=== PATIENT | male | born 1945 | race Caucasian/White ===

== ENCOUNTER 2019-10-12 16:34 | Emergency (ER) | payer OTHER, MEDICARE ==
--- NOTE | 2019-10-12 17:12 | EDM.PDOC ---
<Isidro Pardo M - Last Filed: 10/12/19 17:06> ED HPI GENERAL MEDICAL PROBLEM - General Stated Complaint: PNEUMONIA, SHORTNESS OF BREATH, COUGH Time Seen by Provider: 10/12/19 17:00 Source of Information: Reports: Patient History Limitations: Reports: No Limitations - History of Present Illness INITIAL COMMENTS - FREE TEXT/NARRATIVE: This 74 yo male patient reports to the ED with increased shortness of breath. The patient reports his shortness of breath started about 1 1/2 to 2 weeks ago, but has been getting worse. The patient reports increased shortness of breath with exertion. The [facility] but [facility] not been seen for the past couple of months. The patient reports his shortness of breath has been getting worse over the past several days. The patient reports he does have a C-Pap, but does not use it. The patient has a past medical history of myloma, diabetes, COPD, MONICA and GERD. The patient reports he has not been traveling, but his relatives have been out and about and have been visiting him at his home. Onset: Gradual Duration: Week(s):, Constant, Getting Worse Location: Reports: Chest Quality: Reports: Other Severity: Moderate Improves with: Reports: None Worsens with: Reports: None Context: Reports: Other Associated Symptoms: Reports: Confusion (chronic), Shortness of Breath. Denies : Chest Pain, Cough, cough w sputum - Related Data Allergies Allergy/AdvReac Type Severity Reaction Status Date / Time metoclopramide Allergy Mild Other Verified 05/27/14 07:50 Sulfa (Sulfonamide Allergy Mild Rash Verified 05/27/14 07:49 Antibiotics) morphine Allergy Nausea Verified 05/27/14 07:52 Penicillins Allergy Hallucinati Verified 05/27/14 07:51 ons cilatatin Allergy Other Uncoded 05/27/14 07:50 Home Meds: Home Meds Aspirin [Ecotrin EC] 81 mg PO DAILY 05/27/14 [History] Ferrous Sulfate 325 mg PO DAILY 05/27/14 [History] Multivit with Calcium,Iron,Min [Essential Daily] 1 tab PO DAILY 05/27/14 [ History] Omeprazole 20 mg PO BEDTIME 05/27/14 [History] Sertraline HCl 50 mg PO DAILY 05/27/14 [History] Simvastatin [Zocor] 40 mg PO DAILY 05/27/14 [History] glipiZIDE [Glucotrol] 5 mg ORAL.INH DAILY 05/27/14 [History] Past Medical History HEENT History: Reports: Hard of Hearing Cardiovascular History: Reports: Blood Clots/VTE/DVT, [place] Respiratory History: Reports: COPD, Sleep Apnea Musculoskeletal History: Reports: Arthritis Neurological History: Reports: None Endocrine/Metabolic History: Reports: Diabetes, Type I Hematologic History: Reports: None Immunologic History: Reports: None Oncologic (Cancer) History: Reports: Lymphoma Dermatologic History: Reports: Cellulitis - Infectious Disease History Infectious Disease History: Reports: None - Past Surgical History Head Surgeries/Procedures: Reports: None HEENT Surgical History: Reports: Tonsillectomy GI Surgical History: Reports: Appendectomy Male Surgical History: Reports: Other (See Below) Other Male Surgeries/Procedures: removal of right side Musculoskeletal Surgical History: Reports: Hip Replacement Social & Family History - Family History Family Medical History: Noncontributory - Tobacco Use Smoking Status *Q: Former Smoker Used Tobacco, but Quit: Yes Month/Year Tobacco Last Used: 1994 - Caffeine Use Caffeine Use: Reports: Coffee - Recreational Drug Use Recreational Drug Use: No ED ROS GENERAL - Review of Systems Review Of Systems: Comprehensive ROS is negative, except as noted in HPI. ED EXAM, GENERAL - Physical Exam Exam: See Below Exam Limited By: No Limitations General Appearance: Alert, WD/WN, Moderate Distress Eye Exam: Bilateral Eye: EOMI, Normal Inspection, PERRL Ears: Normal External Exam, Normal Canal, Hearing Grossly Normal, Normal TMs Nose: Normal Inspection, Normal Mucosa, No Blood Throat/Mouth: Normal Inspection, Normal Lips, Normal Teeth, Normal Gums, Normal Oropharynx, Normal Voice, No Airway Compromise Head: Atraumatic, Normocephalic Neck: Normal Inspection, Supple, Non-Tender, Full Range of Motion Respiratory/Chest: Decreased Breath Sounds Cardiovascular: Normal Peripheral Pulses, Regular Rate, Rhythm, No Edema, No Gallop, No JVD, No Murmur, No Rub (Male) Exam: Deferred Rectal (Males) Exam: Deferred Back Exam: Normal Inspection, Full Range of Motion, NT Extremities: Normal Inspection, Normal Range of Motion, Non-Tender, Normal Capillary Refill, No Pedal Edema Neurological: Alert, Oriented, CN II-XII Intact, Normal Cognition, Normal Gait, Normal Reflexes, No Motor/Sensory Deficits Psychiatric: Normal Affect, Normal Mood Skin Exam: Warm, Dry, Intact, Normal Color, No Rash Lymphatic: No Adenopathy Course - Vital Signs Last Recorded V/S: Last Vital Signs Temp 37.1 C 10/12/19 21:47 Pulse 93 10/12/19 21:47 Resp 17 10/12/19 21:47 BP 153/99 H 10/12/19 21:47 Pulse Ox 96 10/12/19 21:47 - Orders/Labs/Meds Orders: Active Orders 24 hr Category Date Time Status EKG Documentation Completion [RC] ROUTINE Care 10/12/19 21:00 Active EKG Documentation Completion [RC] URGENT Care 10/12/19 16:43 Active CULTURE BLOOD [BC] Stat Lab 10/12/19 16:53 Received Labs: Laboratory Tests 10/12/19 10/12/19 10/12/19 Range/Units 16:53 16:53 16:53 WBC 11.0 H (5.0-10.0) 10^3/uL RBC 5.16 (4.6-6.2) 10^6/uL Hgb 15.1 (14.0-18.0) g/dL Hct 44.8 (40.0-54.0) % MCV 86.8 (80-100) fL MCH 29.3 (27.0-34.0) pg MCHC 33.7 (33.0-35.0) g/dL Plt Count 149 L (150-450) 10^3/uL Neut % (Auto) 60.0 (42.2-75.2) % Lymph % (Auto) 25.1 (20.5-50.1) % [place] % (Auto) 10.7 H (2-8) % Eos % (Auto) 3.1 H (1.0-3.0) % Baso % (Auto) 1.1 H (0.0-1.0) % Sodium (136-145) mmol/L Potassium (3.5-5.1) mmol/L Chloride (98-107) mmol/L Carbon Dioxide (21-32) mmol/L Anion Gap (7-13) mEq/L BUN (7-18) mg/dL Creatinine (0.70-1.30) mg/dL Est Cr Clr Drug Dosing mL/min Estimated GFR (MDRD) BUN/Creatinine Ratio (No establ ref range) Glucose (74-99) mg/dL Lactic Acid 2.2 H* (0.4-2.0) mmol/L Calcium (8.5-10.1) mg/dL Total Bilirubin (0.2-1.0) mg/dL AST (15-37) U/L ALT (16-63) U/L Alkaline Phosphatase (46-116) U/L Troponin I (0.000-0.056) ng/mL B-Natriuretic Peptide 248 H (0-100) pg/ml Total Protein (6.4-8.2) g/dL Albumin (3.4-5.0) g/dL Globulin Albumin/Globulin Ratio 10/12/19 10/12/19 Range/Units 16:53 21:05 WBC (5.0-10.0) 10^3/uL RBC (4.6-6.2) 10^6/uL Hgb (14.0-18.0) g/dL Hct (40.0-54.0) % MCV (80-100) fL MCH (27.0-34.0) pg MCHC (33.0-35.0) g/dL Plt Count (150-450) 10^3/uL Neut % (Auto) (42.2-75.2) % Lymph % (Auto) (20.5-50.1) % [place] % (Auto) (2-8) % Eos % (Auto) (1.0-3.0) % Baso % (Auto) (0.0-1.0) % Sodium 137 (136-145) mmol/L Potassium 4.7 (3.5-5.1) mmol/L Chloride 101 (98-107) mmol/L Carbon Dioxide 25 (21-32) mmol/L Anion Gap 15.7 H (7-13) mEq/L BUN 30 H (7-18) mg/dL Creatinine 1.97 H (0.70-1.30) mg/dL Est Cr Clr Drug Dosing 31.83 mL/min Estimated GFR (MDRD) 33 BUN/Creatinine Ratio 15.2 (No establ ref range) Glucose 322 H (74-99) mg/dL Lactic Acid (0.4-2.0) mmol/L Calcium 8.8 (8.5-10.1) mg/dL Total Bilirubin 0.3 (0.2-1.0) mg/dL AST 13 L (15-37) U/L ALT 28 (16-63) U/L Alkaline Phosphatase 105 (46-116) U/L Troponin I 0.067 H* 0.064 H* (0.000-0.056) ng/mL B-Natriuretic Peptide (0-100) pg/ml Total Protein 6.3 L (6.4-8.2) g/dL Albumin 3.1 L (3.4-5.0) g/dL Globulin 3.2 Albumin/Globulin Ratio 0.97 Departure - Departure Disposition: Home, Self-Care 01 Clinical Impression: COPD exacerbation, Chest wall pain - Discharge Information Forms: ED Department Discharge Additional Instructions: 1) rest 2) recheck if there is any change or concern Sepsis Event Note - Evaluation Sepsis Screening Result: No Definite Risk - Focused Exam Vital Signs: Vital Signs Temp Pulse Resp BP Pulse Ox 10/12/19 21:47 37.1 C 93 17 153/99 H 96 10/12/19 21:06 36.8 C 93 20 148/93 H 92 L 10/12/19 19:17 36.7 C 94 20 148/93 H 91 L 10/12/19 16:47 37.1 C 108 H 20 155/84 H 95 Date Exam was Performed: 10/12/19 Time Exam was Performed: 17:06 <Kannan Schmitz - Last Filed: 10/12/19 22:00> Course - Re-Assessments/Exams Free Text/Narrative Re-Assessment/Exam: 10/12/19 21:58 results discussed with pt who wants to go home. feels fine, no c/o. Departure - Departure Time of Disposition: 21:58 Condition: Good Sepsis Event Note - Focused Exam Date Exam was Performed: 10/12/19 Time Exam was Performed: 21:58
[2019-10-12 18:06] LABS: ANION GAP 15.7 mEq/L (7-13)
== END 2019-10-12 22:09 | disposition home or self-care (01) ==
LOC: DL.ED 16:34
DX: J44.1 Chronic obstructive pulmonary disease with (acute) exacerbation (principal); I25.2 Old myocardial infarction; M19.90 Unspecified osteoarthritis, unspecified site; E10.9 Type 1 diabetes mellitus without complications; Z79.899 Other long term (current) drug therapy; Z79.82 Long term (current) use of aspirin; Z88.8 Allergy status to other drugs, medicaments and biological substances; Z88.2 Allergy status to sulfonamides; Z88.5 Allergy status to narcotic agent; Z88.0 Allergy status to penicillin; Z88.1 Allergy status to other antibiotic agents; Z87.891 Personal history of nicotine dependence
CPT/HCPCS: 36415; 71046; 80053; 83605; 83880; 84484; 85025; 87040; 93005; 99283; 99285-25

== ENCOUNTER 2019-10-31 12:27 | Emergency (ER) | payer OTHER ==
--- NOTE | 2019-10-31 12:39 | EDM.PDOC ---
ED HPI GENERAL MEDICAL PROBLEM - General Chief Complaint: Respiratory Problem Stated Complaint: HARD TIME BREATHING Time Seen by Provider: 10/31/19 12:38 Source of Information: Reports: Patient, Family (), Old Records, Provider ( PROSTHETIC AIDE from [place] (Tadeo)) History Limitations: Reports: No Limitations - History of Present Illness INITIAL COMMENTS - FREE TEXT/NARRATIVE: Pt arrives to ER from home by POV having been sent by his [place] Nurse Practitioner with c/o COPD exacerbation not improving after completing a one week steroid coarse, hyperglycemia, and concern for a P.E. Pt also had unintentionally discontinued his diuretic, but that was restarted a few days ago. He does not have home supplemental oxygen. The [place] PROSTHETIC AIDE wanted the pt to have a V/Q scan to r/ o PE due to his persistent dyspnea and Hx of PE. He apparently was anticoagulated but it was discontinued due to his single kidney and high Cr. Currently pt c/o progressively worsening shortness of breath for several weeks. Prior to three weeks ago he could walk 400 yards, and now he has to sit down and "work for air". He was seen in ER 10/12/19 for shortness of breath. He states he inhaled some stainless steel flue cleaner chemical last week and he thinks it affected his lungs. states that he has a history of DVT, and that last week the legs were swollen because he was not taking his "water pill". Pt denies fever, states he has been short of breath and had cough which is slightly productive with rene sputum. He denies travel, or known Covid or other sick exposure. Onset: Gradual Duration: Constant, Getting Worse Location: Reports: Chest Severity: Severe Improves with: Reports: None Worsens with: Reports: Other (Activity/exertion) Associated Symptoms: Reports: No Other Symptoms Treatments HOME HEALTH ADMINISTRATOR: Reports: Breathing Treatments, Other Medication(s) - Related Data Allergies Allergy/AdvReac Type Severity Reaction Status Date / Time metoclopramide Allergy Mild Other Verified 10/31/19 12:49 Sulfa (Sulfonamide Allergy Mild Rash Verified 10/31/19 12:49 Antibiotics) morphine Allergy Nausea Verified 10/31/19 12:49 Penicillins Allergy Hallucinati Verified 10/31/19 12:49 ons cilatatin Allergy Other Uncoded 05/27/14 07:50 Home Meds: Home Meds Aspirin [Ecotrin EC] 81 mg PO DAILY 05/27/14 [History] Ferrous Sulfate 325 mg PO DAILY 05/27/14 [History] Multivit with Calcium,Iron,Min [Essential Daily] 1 tab PO DAILY 05/27/14 [ History] Omeprazole 20 mg PO BEDTIME 05/27/14 [History] Sertraline HCl 50 mg PO DAILY 05/27/14 [History] Simvastatin [Zocor] 40 mg PO DAILY 05/27/14 [History] glipiZIDE [Glucotrol] 5 mg ORAL.INH DAILY 05/27/14 [History] Past Medical History HEENT History: Reports: Hard of Hearing Cardiovascular History: Reports: Blood Clots/VTE/DVT, [place] Respiratory History: Reports: COPD, Sleep Apnea Musculoskeletal History: Reports: Arthritis Neurological History: Reports: None Endocrine/Metabolic History: Reports: Diabetes, Type II, IDDM, Obesity/BMI 30+ Hematologic History: Reports: None Immunologic History: Reports: None Oncologic (Cancer) History: Reports: Lymphoma Dermatologic History: Reports: Cellulitis - Infectious Disease History Infectious Disease History: Reports: None - Past Surgical History Head Surgeries/Procedures: Reports: None HEENT Surgical History: Reports: Tonsillectomy GI Surgical History: Reports: Appendectomy Male Surgical History: Reports: Other (See Below) Other Male Surgeries/Procedures: removal of right side Musculoskeletal Surgical History: Reports: Hip Replacement Social & Family History - Family History Family Medical History: Noncontributory - Caffeine Use Caffeine Use: Reports: Coffee - Living Situation & Occupation Living situation: Reports: , with Spouse Occupation: Retired ED ROS GENERAL - Review of Systems Review Of Systems: Comprehensive ROS is negative, except as noted in HPI. ED EXAM, GENERAL - Physical Exam Exam: See Below Exam Limited By: No Limitations General Appearance: Alert, No Apparent Distress, Obese Eye Exam: Bilateral Eye: Normal Inspection Nose: Normal Inspection, Normal Mucosa, No Blood Throat/Mouth: Normal Inspection, Normal Lips, Normal Oropharynx, Normal Voice, No Airway Compromise Head: Atraumatic, Normocephalic Neck: Normal Inspection, Supple, Non-Tender, Full Range of Motion Respiratory/Chest: No Respiratory Distress, No Accessory Muscle Use, Chest Non- Tender, Decreased Breath Sounds, Wheezing Cardiovascular: Regular Rate, Rhythm, Tachycardia, Other (+1 pitting edema to knees despite compression stockings) GI/Abdominal: Normal Bowel Sounds, Soft, Non-Tender, Other (Benign obese abdomen ) Back Exam: Normal Inspection Extremities: Normal Range of Motion, Non-Tender, Pedal Edema Neurological: Alert, Oriented, No Motor/Sensory Deficits Psychiatric: Normal Mood Skin Exam: Warm, Dry, Intact EKG INTERPRETATION EKG Date: 10/31/19 Time: 13:10 Rhythm: Other (SR) Rate (Beats/Min): 83 [place]: LAD-Left [place] Deviation P-Wave: Present QRS: Other (early precordial R/S transition, LVH) ST-T: Normal QT: Normal Comparison: NA - No Prior EKG Course - Vital Signs Last Recorded V/S: Last Vital Signs Temp 98.7 F 10/31/19 12:49 Pulse 86 10/31/19 13:00 Resp 18 10/31/19 12:49 BP 155/90 H 10/31/19 12:49 Pulse Ox 96 10/31/19 13:00 - Orders/Labs/Meds Orders: Active Orders 24 hr Category Date Time Status EKG 12 Lead [EKG Documentation Completion] [] STAT Care 10/31/19 12:59 Active Peripheral IV Care [RC] . DIRECTED Care 10/31/19 13:00 Active RT Aerosol Therapy [RC] ASDIRECTED Care 10/31/19 13:00 Active CULTURE BLOOD [BC] Stat Lab 10/31/19 13:10 Received Sodium Chloride 0.9% [Saline Flush] Med 10/31/19 13:00 Active 10 ml FLUSH ASDIRECTED PRN Peripheral IV Insertion Adult [OM.PC] Stat Oth 10/31/19 12:59 Ordered Medication Orders Sodium Chloride (Saline Flush) 10 ml FLUSH ASDIRECTED PRN PRN Reason: Keep Vein Open Last Admin: 10/31/19 13:14 Dose: 10 ml Labs: Laboratory Tests 10/31/19 10/31/19 10/31/19 Range/Units 13:10 13:10 13:10 WBC 11.3 H (5.0-10.0) 10^3/uL RBC 5.02 (4.6-6.2) 10^6/uL Hgb 14.7 (14.0-18.0) g/dL Hct 43.6 (40.0-54.0) % MCV 86.9 (80-100) fL MCH 29.3 (27.0-34.0) pg MCHC 33.7 (33.0-35.0) g/dL Plt Count 130 L (150-450) 10^3/uL Neut % (Auto) 66.4 (42.2-75.2) % Lymph % (Auto) 20.7 (20.5-50.1) % [place] % (Auto) 8.9 H (2-8) % Eos % (Auto) 3.2 H (1.0-3.0) % Baso % (Auto) 0.8 (0.0-1.0) % Add Manual Diff Yes Neutrophils % (Manual) 60 (42-75) % Band Neutrophils % 5 % Lymphocytes % (Manual) 21 (20-50) % Monocytes % (Manual) 10 H (2-8) % Eosinophils % (Manual) 4 H (1-3) % D-Dimer, Quantitative 3180 H (0-400) ng/mL Sodium 135 L (136-145) mmol/L Potassium 4.5 (3.5-5.1) mmol/L Chloride 98 (98-107) mmol/L Carbon Dioxide 30 (21-32) mmol/L Anion Gap 11.5 (7-13) mEq/L BUN 36 H (7-18) mg/dL Creatinine 2.17 H (0.70-1.30) mg/dL Est Cr Clr Drug Dosing 28.89 mL/min Estimated GFR (MDRD) 30 BUN/Creatinine Ratio 16.6 (No establ ref range) Glucose 419 H* (74-99) mg/dL Lactic Acid (0.4-2.0) mmol/L Calcium 8.8 (8.5-10.1) mg/dL Total Bilirubin 0.4 (0.2-1.0) mg/dL AST 10 L (15-37) U/L ALT 25 (16-63) U/L Alkaline Phosphatase 103 (46-116) U/L B-Natriuretic Peptide 30 (0-100) pg/ml Total Protein 6.1 L (6.4-8.2) g/dL Albumin 3.2 L (3.4-5.0) g/dL Globulin 2.9 Albumin/Globulin Ratio 1.10 05/07/20 Range/Units 13:10 WBC (5.0-10.0) 10^3/uL RBC (4.6-6.2) 10^6/uL Hgb (14.0-18.0) g/dL Hct (40.0-54.0) % MCV (80-100) fL MCH (27.0-34.0) pg MCHC (33.0-35.0) g/dL Plt Count (150-450) 10^3/uL Neut % (Auto) (42.2-75.2) % Lymph % (Auto) (20.5-50.1) % [place] % (Auto) (2-8) % Eos % (Auto) (1.0-3.0) % Baso % (Auto) (0.0-1.0) % Add Manual Diff Neutrophils % (Manual) (42-75) % Band Neutrophils % % Lymphocytes % (Manual) (20-50) % Monocytes % (Manual) (2-8) % Eosinophils % (Manual) (1-3) % D-Dimer, Quantitative (0-400) ng/mL Sodium (136-145) mmol/L Potassium (3.5-5.1) mmol/L Chloride (98-107) mmol/L Carbon Dioxide (21-32) mmol/L Anion Gap (7-13) mEq/L BUN (7-18) mg/dL Creatinine (0.70-1.30) mg/dL Est Cr Clr Drug Dosing mL/min Estimated GFR (MDRD) BUN/Creatinine Ratio (No establ ref range) Glucose (74-99) mg/dL Lactic Acid 1.8 (0.4-2.0) mmol/L Calcium (8.5-10.1) mg/dL Total Bilirubin (0.2-1.0) mg/dL AST (15-37) U/L ALT (16-63) U/L Alkaline Phosphatase (46-116) U/L B-Natriuretic Peptide (0-100) pg/ml Total Protein (6.4-8.2) g/dL Albumin (3.4-5.0) g/dL Globulin Albumin/Globulin Ratio Meds: Medications Generic Name Dose Route Start Last Admin Trade Name Freq PRN Reason Stop Dose Admin Sodium Chloride 10 ml 10/31/19 13:00 10/31/19 13:14 Saline Flush FLUSH 10 ml ASDIRECTED PRN Administration Keep Vein Open Discontinued Medications Generic Name Dose Route Start Last Admin Trade Name Freq PRN Reason Stop Dose Admin Albuterol/Ipratropium 3 ml 10/31/19 13:00 10/31/19 13:12 Duoneb 3.0-0.5 Mg/3 Ml NEB 10/31/19 13:01 3 ml ONETIME ONE Administration Methylprednisolone Sodium Succinate 125 mg 10/31/19 13:00 10/31/19 13:14 Solu-Medrol IVPUSH 10/31/19 13:01 125 mg ONETIME ONE Administration - Radiology Interpretation Free Text/Narrative:: [facility] [place] [facility] Final Radiology Report Call: [phone] assistance Online chat: [email or web address] Name: GENARO JUAREZ Age: 74Years M Date: 10/31/2019 SSN: -- : [id number] Study: XR CHEST 2 VIEWS FRONTAL & LAT Requesting Physician: JORGE CELAYA Images: 2 Addl Studies: Provided Clinical History: Contrast: Contrast Medium: Contrast Amount: Contrast Method: CONFIDENTIALITY STATEMENT This report is intended only for use by the referring physician, and only in accordance with law. If you received this in error, call [phone]. Page 1 of 1 PROCEDURE INFORMATION: Exam: XR Chest, 2 Views Exam date and time: 10/31/2019 1:20 PM Age: 74 years old Clinical indication: Shortness of breath and other: Copd TECHNIQUE: Imaging protocol: XR of the chest Views: 2 views. COMPARISON: CR Chest 2V 10/12/2019 6:16 PM FINDINGS: Lungs: There is again minor streaky bibasilar atelectasis. The lungs are otherwise clear. Pleural space: Unremarkable. No pleural effusion. No pneumothorax. Heart/Mediastinum: The cardiomediastinal silhouette is fairly stable in appearance. Bones/joints: Degenerative changes again involve the spine. There is again a chronic right clavicular fracture. Soft tissues: Surgical clips again overlie the left neck. IMPRESSION: No evidence for acute pulmonary disease or significant change since 10/12/19. Thank you for allowing us to participate in the care of your patient. Dictated and Authenticated by: Randy Young MD 10/31/2019 1:34 PM Central Time ([place] & [place]) - Re-Assessments/Exams Free Text/Narrative Re-Assessment/Exam: 10/31/19 14:38 [place] authorizes pt transfer and admission to [facility] as the [facility] does not have V/Q scan available. Departure - Departure Time of Disposition: 14:39 Disposition: DC/Tfer to Acute Hospital 02 Condition: Fair, Undetermined Clinical Impression: COPD exacerbation, History of pulmonary embolus (PE), Solitary kidney Hyperglycemia due to type 2 diabetes mellitus Qualifiers: Diabetes mellitus superintendent terminal insulin use: with fdc use Qualified Code(s): E11.65 - Type 2 diabetes mellitus with hyperglycemia; Z79.4 - detention (current ) use of insulin CKD (chronic kidney disease) Qualifiers: Chronic kidney disease stage: unspecified stage Qualified Code(s): N18.9 - Chronic kidney disease, unspecified - Discharge Information *PRESCRIPTION DRUG MONITORING PROGRAM REVIEWED*: Not Applicable *COPY OF PRESCRIPTION DRUG MONITORING REPORT IN PATIENT ELENA: Not Applicable Forms: ED Department Discharge, Interfacility Transfer EMTALA Sepsis Event Note - Focused Exam Vital Signs: Vital Signs Temp Pulse Resp BP Pulse Ox Pulse Ox 10/31/19 13:00 86 96 10/31/19 12:49 98.7 F 102 H 18 155/90 H 94 L Date Exam was Performed: 10/31/19 Time Exam was Performed: 14:22 - My Orders Last 24 Hours: My Active Orders 10/31/19 12:59 EKG 12 Lead [EKG Documentation Completion] [RC] STAT Peripheral IV Insertion Adult [OM.PC] Stat 10/31/19 13:00 Peripheral IV Care [RC] . DIRECTED RT Aerosol Therapy [RC] ASDIRECTED Sodium Chloride 0.9% [Saline Flush] 10 ml FLUSH ASDIRECTED PRN 10/31/19 13:10 CULTURE BLOOD [BC] Stat - Assessment/Plan Last 24 Hours: My Active Orders 10/31/19 12:59 EKG 12 Lead [EKG Documentation Completion] [RC] STAT Peripheral IV Insertion Adult [OM.PC] Stat 10/31/19 13:00 Peripheral IV Care [RC] . DIRECTED RT Aerosol Therapy [RC] ASDIRECTED Sodium Chloride 0.9% [Saline Flush] 10 ml FLUSH ASDIRECTED PRN 10/31/19 13:10 CULTURE BLOOD [BC] Stat
[2019-10-31] MEDS ORDERED: Sodium Chloride 0.9% 10 ML Syringe FLUSH PRN (13:00)
[2019-10-31] MEDS ORDERED: methylPREDNISolone Sodium Succinate 125 MG/2 ML SDV IVPUSH ONE (13:00)
[2019-10-31] MEDS ORDERED: Albuterol/Ipratropium 3.0-0.5 MG/3 ML Neb Soln NEB ONE (13:00)
[2019-10-31 13:45] LABS: ANION GAP 11.5 mEq/L (7-13)
[2019-10-31] MEDS ORDERED: Heparin Sodium 5,000 Units/ML Vial IVPUSH ONE (14:41)
== END 2019-10-31 15:45 ==
LOC: DL.ED 12:27
DX: J44.1 Chronic obstructive pulmonary disease with (acute) exacerbation (principal); E11.65 Type 2 diabetes mellitus with hyperglycemia; E11.22 Type 2 diabetes mellitus with diabetic chronic kidney disease; N18.9 Chronic kidney disease, unspecified; I25.2 Old myocardial infarction; J44.9 Chronic obstructive pulmonary disease, unspecified; M19.90 Unspecified osteoarthritis, unspecified site; Q60.0 Renal agenesis, unilateral; E66.9 Obesity, unspecified; Z68.35 Body mass index [BMI] 35.0-35.9, adult; Z79.84 Long term (current) use of oral hypoglycemic drugs; Z79.4 Long term (current) use of insulin; Z88.2 Allergy status to sulfonamides; Z88.5 Allergy status to narcotic agent; Z88.0 Allergy status to penicillin; Z88.8 Allergy status to other drugs, medicaments and biological substances; Z79.82 Long term (current) use of aspirin; Z79.899 Other long term (current) drug therapy; Z09 Encounter for follow-up examination after completed treatment for conditions other than malignant neoplasm; Z86.711 Personal history of pulmonary embolism
CPT/HCPCS: 36415; 71046; 80053; 83605; 83880; 85025; 85379; 87040; 93005; 94640; 96374; 96375; 99285; J1644; J2930; J7620-GY

== ENCOUNTER 2022-02-15 10:58 | Inpatient (IN) | payer OTHER, MEDICARE ==
[~2022-02-15 10:58] MED LIST: Azithromycin 500 MG in Sodium Chloride 0.9% 250 ML IV SCH
[2022-02-15] MEDS ORDERED: Sodium Chloride 0.9% 10 ML Syringe FLUSH PRN (11:22)
[2022-02-15 12:02] LABS: ANION GAP 20.4 mEq/L (7-13); CHLORIDE,CL 100 mmol/L (98-107); SODIUM,NA 135 mmol/L (136-145)
[2022-02-15 12:05] LABS: ESTIMATED GFR 21 mL/min (>=60)
[2022-02-15] MEDS ORDERED: Sodium Chloride 0.9% 1,000 ML IV ONE ×2 (12:24→14:48)
[2022-02-15] MEDS ORDERED: Albuterol/Ipratropium 3.0-0.5 MG/3 ML Neb Soln NEB ONE (15:35)
[2022-02-15] MEDS ORDERED: Bisacodyl 5 MG Tab PO PRN (21:20)
[2022-02-15] MEDS ORDERED: Ondansetron 4 MG/2 ML SDV IVPUSH PRN (21:20)
[2022-02-15] MEDS ORDERED: HYDROmorphone 0.5 MG/0.5 ML Syringe IVPUSH PRN (21:20)
[2022-02-15] MEDS ORDERED: Albuterol/Ipratropium 3.0-0.5 MG/3 ML Neb Soln NEB PRN (21:20)
[2022-02-15] MEDS ORDERED: Polyethylene Glycol 3350 Powder 17 GM Packet PO PRN (21:20)
[2022-02-15] MEDS ORDERED: Magnesium Hydroxide 400 MG/5 ML Susp 30 ML Cup PO PRN (21:20)
[2022-02-15] MEDS ORDERED: guaiFENesin/Dextromethorphan 100-10 MG/5 ML Soln 5 ML Cup PO PRN (21:24)
[2022-02-15] MEDS ORDERED: Dexamethasone 4 MG/ML SDV IVPUSH ONE (21:24)
[2022-02-15] MEDS ORDERED: Glucagon,Human Recombinant 1 MG Vial IM PRN (21:26)
[2022-02-15] MEDS ORDERED: 50% Dextrose in Water 50 ML Syringe IVPUSH PRN (21:26)
[2022-02-15] MEDS ORDERED: cefTRIAXone 1 GM in Sodium Chloride 0.9% 50 ML IV ONE (21:27)
[2022-02-15] MEDS ORDERED: Azithromycin 500 MG in Sodium Chloride 0.9% 250 ML IV ONE (21:27)
[2022-02-15] MEDS ORDERED: Nystatin Topical Powder 30 GM Bottle TOP PRN (21:30)
[2022-02-15] MEDS: Sodium Chloride 0.9% 1,000 ML IV SCH (22:04)
[2022-02-15] MEDS: Acetaminophen 325 MG Tab PO PRN (23:19)
[2022-02-16 07:11] LABS: ANION GAP 20.3 mEq/L (7-13)
[2022-02-16] MEDS: Saccharomyces Boulardii (Probiotic) 250 MG Cap PO SCH ×2 (08:19→20:17)
[2022-02-16] MEDS: Insulin Lispro 100 Units/ML 3 ML Vial SUBCUT SCH ×3 (08:25→17:23)
[2022-02-16] MEDS ORDERED: Dexamethasone 4 MG/ML SDV PO SCH (09:00)
[2022-02-16] MEDS ORDERED: Non-Formulary Medication 1 Each (Dextrose [Glucose] 4 GM Tab.Chew) PO PRN (13:27)
[2022-02-16] MEDS ORDERED: SODIUM PHOSPHATE MONO DIBASIC RECTAL PRN (13:27)
[2022-02-16] MEDS ORDERED: [UNRECOGNIZED DRUG - OTHER] RECTAL PRN (13:27)
[2022-02-16] MEDS ORDERED: LEUPROLIDE ACETATE 45 MG SUBCUT SCH (13:30)
[2022-02-16] MEDS: glipiZIDE 5 MG Tab PO SCH (17:22)
[2022-02-16] MEDS: Sodium Chloride 0.9% 1,000 ML IV SCH (20:02)
[2022-02-16] MEDS: cefTRIAXone 1 GM in Sodium Chloride 0.9% 50 ML IV SCH (20:05)
[2022-02-16] MEDS: amLODIPine 5 MG Tab PO SCH (20:11)
[2022-02-16] MEDS: Apixaban 5 MG Tab PO SCH (20:11)
[2022-02-16] MEDS: Rosuvastatin 10 MG Tab PO SCH (20:14)
[2022-02-16] MEDS: Phenazopyridine 95 MG Tab PO SCH (20:16)
[2022-02-16] MEDS: Acetaminophen 325 MG Tab PO PRN (20:17)
[2022-02-16] MEDS: Azithromycin 500 MG in Sodium Chloride 0.9% 250 ML IV SCH (21:21)
[2022-02-17] MEDS: Pantoprazole 40 MG Tab.CR PO SCH (05:26)
[2022-02-17] MEDS: glipiZIDE 5 MG Tab PO SCH ×2 (05:26→16:52)
[2022-02-17 07:59] LABS: ANION GAP 17.7 mEq/L (7-13)
[2022-02-17] MEDS: Apixaban 5 MG Tab PO SCH ×2 (08:44→20:01)
[2022-02-17] MEDS: Multivitamins with Iron/Calcium/Folic Acid/Minerals Tab PO SCH (08:44)
[2022-02-17] MEDS: Finasteride 5 MG Tab PO SCH (08:44)
[2022-02-17] MEDS: Phenazopyridine 95 MG Tab PO SCH ×3 (08:44→20:01)
[2022-02-17] MEDS: Dexamethasone 6 MG TABLET PO SCH (08:44)
[2022-02-17] MEDS: Saccharomyces Boulardii (Probiotic) 250 MG Cap PO SCH ×2 (08:44→20:01)
[2022-02-17] MEDS: Insulin Lispro 100 Units/ML 3 ML Vial SUBCUT SCH ×3 (08:46→16:57)
[2022-02-17] MEDS: ASMANEX 100 MCG INH SCH ×2 (08:54→20:17)
[2022-02-17] MEDS ORDERED: ALFUZOSIN HCL 10 MG PO SCH (09:00)
[2022-02-17] MEDS ORDERED: 50% Dextrose in Water 50 ML Syringe IVPUSH PRN (12:05)
[2022-02-17] MEDS ORDERED: Glucagon,Human Recombinant 1 MG Vial IM PRN (12:05)
[2022-02-17] MEDS: Tiotropium Inhaler 18 MCG Inhalation Powder Cap Kit of 5 INH SCH (16:53)
[2022-02-17] MEDS: Rosuvastatin 10 MG Tab PO SCH (20:01)
[2022-02-17] MEDS: cefTRIAXone 1 GM in Sodium Chloride 0.9% 50 ML IV SCH (20:09)
[2022-02-17] MEDS ORDERED: Sodium Bicarbonate 4.2% 2.5 MEQ/5 ML SDV IVPUSH ONE ×2 (20:13→22:15)
[2022-02-17] MEDS: amLODIPine 5 MG Tab PO SCH (20:18)
[2022-02-17] MEDS ORDERED: BICALUTAMIDE 50 MG PO SCH (21:00)
[2022-02-17] MEDS: Insulin Glarg,Human.Rec.Analog 100 Unit/ML SUBCUT SCH (21:25)
[2022-02-17] MEDS: Azithromycin 500 MG in Sodium Chloride 0.9% 250 ML IV SCH (21:28)
[2022-02-17] MEDS ORDERED: Metoprolol Tartrate 5 MG/5 ML SDV IVPUSH PRN (22:00)
[2022-02-17] MEDS ORDERED: Sodium Bicarbonate 4.2% 2.5 MEQ/5 ML SDV ONE (22:23)
[2022-02-17] MEDS: Sodium Chloride 0.9% 1,000 ML IV SCH (22:45)
[2022-02-18] MEDS: glipiZIDE 5 MG Tab PO SCH ×2 (05:55→15:32)
[2022-02-18] MEDS: Pantoprazole 40 MG Tab.CR PO SCH (05:56)
[2022-02-18 07:07] LABS: ANION GAP 18.3 mEq/L (7-13)
[2022-02-18] MEDS: Apixaban 5 MG Tab PO SCH (09:09)
[2022-02-18] MEDS: Multivitamins with Iron/Calcium/Folic Acid/Minerals Tab PO SCH (09:09)
[2022-02-18] MEDS: Saccharomyces Boulardii (Probiotic) 250 MG Cap PO SCH (09:09)
[2022-02-18] MEDS: Phenazopyridine 95 MG Tab PO SCH ×2 (09:09→15:32)
[2022-02-18] MEDS: Dexamethasone 6 MG TABLET PO SCH (09:10)
[2022-02-18] MEDS: Finasteride 5 MG Tab PO SCH (09:10)
[2022-02-18] MEDS: Insulin Lispro 100 Units/ML 3 ML Vial SUBCUT SCH ×2 (09:18→12:47)
[2022-02-18] MEDS: Insulin Glarg,Human.Rec.Analog 100 Unit/ML SUBCUT SCH (09:19)
[2022-02-18] MEDS: ASMANEX 100 MCG INH SCH (09:25)
[2022-02-18] MEDS: Tiotropium Inhaler 18 MCG Inhalation Powder Cap Kit of 5 INH SCH (12:47)
[2022-02-18] MEDS ORDERED: Insulin Glarg,Human.Rec.Analog 100 Unit/ML SUBCUT SCH (21:00)
== END 2022-02-18 16:19 | disposition swing bed (61) | DRG 177 ==
LOC: DL.ED 10:58 → DL.MS 18:28
PROVIDERS: ADMIT Internal Medicine; ATTEND Internal Medicine
PROC: 8E0ZXY6 Isolation (ICD-10-PCS; principal; 2022-02-15)
PROC: 3E0333Z Introduction of Anti-inflammatory into Peripheral Vein, Percutaneous Approach (ICD-10-PCS; 2022-02-15)
DX: U07.1 COVID-19 (principal); J12.82 Pneumonia due to coronavirus disease 2019; G93.41 Metabolic encephalopathy; J15.9 Unspecified bacterial pneumonia; J96.01 Acute respiratory failure with hypoxia; N18.4 Chronic kidney disease, stage 4 (severe); E87.2 Acidosis; E87.1 Hypo-osmolality and hyponatremia; R09.02 Hypoxemia; N17.9 Acute kidney failure, unspecified; K21.9 Gastro-esophageal reflux disease without esophagitis; E11.22 Type 2 diabetes mellitus with diabetic chronic kidney disease; R53.1 Weakness; E11.65 Type 2 diabetes mellitus with hyperglycemia; R74.01 Elevation of levels of liver transaminase levels; F01.50 Vascular dementia, unspecified severity, without behavioral disturbance, psychotic disturbance, mood disturbance, and anxiety; R63.0 Anorexia; E87.5 Hyperkalemia; R62.7 Adult failure to thrive; I12.9 Hypertensive chronic kidney disease with stage 1 through stage 4 chronic kidney disease, or unspecified chronic kidney disease; F32.A Depression, unspecified; E66.9 Obesity, unspecified; D69.6 Thrombocytopenia, unspecified; E86.0 Dehydration; D50.9 Iron deficiency anemia, unspecified; G47.33 Obstructive sleep apnea (adult) (pediatric); Z87.891 Personal history of nicotine dependence; Z79.4 Long term (current) use of insulin; Z87.19 Personal history of other diseases of the digestive system; R41.82 Altered mental status, unspecified; Z85.528 Personal history of other malignant neoplasm of kidney; Z90.5 Acquired absence of kidney; Z86.711 Personal history of pulmonary embolism; Z79.01 Long term (current) use of anticoagulants; Z28.310 Unvaccinated for COVID-19; Z68.32 Body mass index [BMI] 32.0-32.9, adult; Z86.16 Personal history of COVID-19; J44.9 Chronic obstructive pulmonary disease, unspecified; Z79.1 Long term (current) use of non-steroidal anti-inflammatories (NSAID); Z79.52 Long term (current) use of systemic steroids; G47.30 Sleep apnea, unspecified; M19.90 Unspecified osteoarthritis, unspecified site; E11.9 Type 2 diabetes mellitus without complications; Z88.6 Allergy status to analgesic agent; Z86.718 Personal history of other venous thrombosis and embolism; Z90.89 Acquired absence of other organs; Z90.49 Acquired absence of other specified parts of digestive tract; Z85.72 Personal history of non-Hodgkin lymphomas; I25.2 Old myocardial infarction; Z88.0 Allergy status to penicillin; Z88.2 Allergy status to sulfonamides; Z88.8 Allergy status to other drugs, medicaments and biological substances; Z79.84 Long term (current) use of oral hypoglycemic drugs; Z79.82 Long term (current) use of aspirin; Z79.899 Other long term (current) drug therapy
CPT/HCPCS: 36415; 70450; 71045; 80053; 81001; 82140; 82306; 82947; 83605; 83735; 83880; 84439; 84443; 84484; 85025; 86140; 87040; 93005; 93010; 96360; 96361; 97116-GP; 97161-GP; 97165-GO; 97530-GO; 97530-GP; 99284; 99285-25; A9270-GY; J0456; J0696; J1100; J1815-GY; J3490; J7030; J7050; J7620-GY; J8540; U0002

== ENCOUNTER 2022-02-18 09:32 | Inpatient (IN) | payer OTHER, MEDICARE ==
[2022-02-18] MEDS ORDERED: Glucagon,Human Recombinant 1 MG Vial IM PRN ×2 (14:00)
[2022-02-18] MEDS ORDERED: Sodium Chloride 0.9% 1,000 ML IV SCH (14:00)
[2022-02-18] MEDS ORDERED: Acetaminophen 325 MG Tab PO PRN (14:00)
[2022-02-18] MEDS ORDERED: Sodium Chloride 0.9% 10 ML Syringe FLUSH PRN ×2 (14:00)
[2022-02-18] MEDS ORDERED: Albuterol/Ipratropium 3.0-0.5 MG/3 ML Neb Soln NEB PRN (14:00)
[2022-02-18] MEDS ORDERED: Polyethylene Glycol 3350 Powder 17 GM Packet PO PRN (14:00)
[2022-02-18] MEDS ORDERED: Nystatin Topical Powder 30 GM Bottle TOP PRN (14:00)
[2022-02-18] MEDS ORDERED: 50% Dextrose in Water 50 ML Syringe IVPUSH PRN (14:00)
[2022-02-18] MEDS ORDERED: Bisacodyl 5 MG Tab PO PRN (14:00)
[2022-02-18] MEDS ORDERED: Magnesium Hydroxide 400 MG/5 ML Susp 30 ML Cup PO PRN (14:00)
[2022-02-18] MEDS ORDERED: Ondansetron 4 MG/2 ML SDV IVPUSH PRN (14:00)
[2022-02-18] MEDS ORDERED: guaiFENesin/Dextromethorphan 100-10 MG/5 ML Soln 5 ML Cup PO PRN (14:00)
[2022-02-18] MEDS: glipiZIDE 5 MG Tab PO SCH (16:45)
[2022-02-18] MEDS: Insulin Lispro 100 Units/ML 3 ML Vial SUBCUT SCH (17:39)
[2022-02-18] MEDS: cefTRIAXone 1 GM in Sodium Chloride 0.9% 50 ML IV SCH (19:21)
[2022-02-18] MEDS: Azithromycin 500 MG in Sodium Chloride 0.9% 250 ML IV SCH (20:56)
[2022-02-18] MEDS: Phenazopyridine 95 MG Tab PO SCH (21:04)
[2022-02-18] MEDS: Saccharomyces Boulardii (Probiotic) 250 MG Cap PO SCH (21:04)
[2022-02-18] MEDS: Rosuvastatin 10 MG Tab PO SCH (21:04)
[2022-02-18] MEDS: amLODIPine 5 MG Tab PO SCH (21:05)
[2022-02-18] MEDS: Apixaban 5 MG Tab PO SCH (21:05)
[2022-02-18] MEDS: Sodium Chloride 0.9% 10 ML Syringe FLUSH SCH (21:06)
[2022-02-18] MEDS: Insulin Glarg,Human.Rec.Analog 100 Unit/ML SUBCUT SCH (21:09)
[2022-02-18] MEDS: MOMETASONE FUROATE INH SCH (22:34)
[2022-02-18] MEDS: BICALUTAMIDE 50 MG PO SCH (22:34)
[2022-02-19] MEDS: Pantoprazole 40 MG Tab.CR PO SCH (06:26)
[2022-02-19] MEDS: glipiZIDE 5 MG Tab PO SCH ×2 (06:28→18:55)
[2022-02-19] MEDS: Insulin Lispro 100 Units/ML 3 ML Vial SUBCUT SCH ×4 (09:43→17:19)
[2022-02-19] MEDS: Phenazopyridine 95 MG Tab PO SCH ×4 (10:03→23:28)
[2022-02-19] MEDS: Finasteride 5 MG Tab PO SCH (10:04)
[2022-02-19] MEDS: Insulin Glarg,Human.Rec.Analog 100 Unit/ML SUBCUT SCH ×2 (10:05→20:48)
[2022-02-19] MEDS: Dexamethasone 6 MG TABLET PO SCH (10:05)
[2022-02-19] MEDS: Apixaban 5 MG Tab PO SCH ×2 (10:05→20:45)
[2022-02-19] MEDS: Saccharomyces Boulardii (Probiotic) 250 MG Cap PO SCH ×2 (10:05→20:46)
[2022-02-19] MEDS: Multivitamins with Iron/Calcium/Folic Acid/Minerals Tab PO SCH (10:05)
[2022-02-19] MEDS: Sodium Chloride 0.9% 10 ML Syringe FLUSH SCH ×2 (10:09→23:28)
[2022-02-19] MEDS: MOMETASONE FUROATE INH SCH ×2 (10:12→20:51)
[2022-02-19] MEDS: Tiotropium Inhaler 18 MCG Inhalation Powder Cap Kit of 5 INH SCH (13:13)
[2022-02-19] MEDS ORDERED: SODIUM PHOSPHATE MONO DIBASIC RECTAL PRN (16:14)
[2022-02-19] MEDS ORDERED: Non-Formulary Medication 1 Each (Dextrose [Glucose] 4 GM Tab.Chew) PO PRN (16:14)
[2022-02-19] MEDS ORDERED: [UNRECOGNIZED DRUG - OTHER] RECTAL PRN (16:14)
[2022-02-19] MEDS ORDERED: Dexamethasone 4 MG Tab PO SCH (16:15)
[2022-02-19] MEDS ORDERED: LEUPROLIDE ACETATE 45 MG SUBCUT SCH (16:15)
[2022-02-19] MEDS ORDERED: TIOTROPIUM BROMIDE INH SCH (16:15)
[2022-02-19] MEDS ORDERED: Non-Formulary Medication 1 Each (Amlodipine Besylate [Amlodipine Besylate] 5 MG Tablet) PO SCH (16:15)
[2022-02-19] MEDS: cefTRIAXone 1 GM in Sodium Chloride 0.9% 50 ML IV SCH (19:28)
[2022-02-19] MEDS: Rosuvastatin 10 MG Tab PO SCH (20:45)
[2022-02-19] MEDS: amLODIPine 5 MG Tab PO SCH (20:46)
[2022-02-19] MEDS ORDERED: Non-Formulary Medication 1 Each (Apixaban [Eliquis] 5 MG Tablet) PO SCH (21:00)
[2022-02-19] MEDS ORDERED: MOMETASONE FUROATE INH SCH (21:00)
[2022-02-19] MEDS ORDERED: Non-Formulary Medication 1 Each (Bicalutamide [Casodex] 50 MG Tablet) PO SCH (21:00)
[2022-02-19] MEDS ORDERED: glipiZIDE 5 MG Tab PO SCH (21:00)
[2022-02-19] MEDS: Azithromycin 500 MG in Sodium Chloride 0.9% 250 ML IV SCH (21:02)
[2022-02-19] MEDS: busPIRone 15 MG Tab PO SCH (23:28)
[2022-02-19] MEDS: BICALUTAMIDE 50 MG PO SCH (23:28)
[2022-02-20] MEDS: glipiZIDE 5 MG Tab PO SCH ×2 (05:57→15:50)
[2022-02-20] MEDS: Pantoprazole 40 MG Tab.CR PO SCH (06:03)
[2022-02-20] MEDS: Multivitamins with Iron/Calcium/Folic Acid/Minerals Tab PO SCH (08:23)
[2022-02-20] MEDS: Dexamethasone 6 MG TABLET PO SCH (08:23)
[2022-02-20] MEDS: Apixaban 5 MG Tab PO SCH ×2 (08:23→21:47)
[2022-02-20] MEDS: Saccharomyces Boulardii (Probiotic) 250 MG Cap PO SCH ×2 (08:23→21:45)
[2022-02-20] MEDS: buPROPion 150 MG Tab.ER PO SCH (08:23)
[2022-02-20] MEDS: busPIRone 15 MG Tab PO SCH ×2 (08:24→21:47)
[2022-02-20] MEDS: Phenazopyridine 95 MG Tab PO SCH ×4 (08:25→21:45)
[2022-02-20] MEDS: Finasteride 5 MG Tab PO SCH (08:25)
[2022-02-20] MEDS: Insulin Lispro 100 Units/ML 3 ML Vial SUBCUT SCH ×3 (08:26→16:50)
[2022-02-20] MEDS: Insulin Glarg,Human.Rec.Analog 100 Unit/ML SUBCUT SCH ×2 (08:28→21:53)
[2022-02-20] MEDS: MOMETASONE FUROATE INH SCH ×2 (08:29→21:49)
[2022-02-20] MEDS: Sodium Chloride 0.9% 10 ML Syringe FLUSH SCH ×2 (08:29→21:47)
[2022-02-20] MEDS ORDERED: [UNRECOGNIZED DRUG - OTHER] PO SCH (09:00)
[2022-02-20] MEDS ORDERED: ALFUZOSIN HCL 10 MG PO SCH (09:00)
[2022-02-20] MEDS ORDERED: FINASTERIDE 5 MG PO SCH (09:00)
[2022-02-20] MEDS: Tiotropium Inhaler 18 MCG Inhalation Powder Cap Kit of 5 INH SCH (13:54)
[2022-02-20] MEDS: Rosuvastatin 10 MG Tab PO SCH (21:45)
[2022-02-20] MEDS: amLODIPine 5 MG Tab PO SCH (21:46)
[2022-02-20] MEDS: BICALUTAMIDE 50 MG PO SCH (21:49)
[2022-02-21] MEDS: glipiZIDE 5 MG Tab PO SCH ×3 (06:13→16:36)
[2022-02-21] MEDS: Pantoprazole 40 MG Tab.CR PO SCH (06:13)
[2022-02-21 08:01] LABS: ANION GAP 17.2 mEq/L (7-13)
[2022-02-21] MEDS ORDERED: Insulin Glarg,Human.Rec.Analog 100 Unit/ML SUBCUT SCH ×3 (09:00→21:00)
[2022-02-21] MEDS: Insulin Lispro 100 Units/ML 3 ML Vial SUBCUT SCH ×3 (09:03→16:33)
[2022-02-21] MEDS: busPIRone 15 MG Tab PO SCH ×2 (09:04→21:07)
[2022-02-21] MEDS: Apixaban 5 MG Tab PO SCH ×2 (09:04→21:06)
[2022-02-21] MEDS: buPROPion 150 MG Tab.ER PO SCH (09:04)
[2022-02-21] MEDS: Finasteride 5 MG Tab PO SCH (09:04)
[2022-02-21] MEDS: Saccharomyces Boulardii (Probiotic) 250 MG Cap PO SCH ×2 (09:05→21:06)
[2022-02-21] MEDS: Dexamethasone 6 MG TABLET PO SCH (09:05)
[2022-02-21] MEDS: Multivitamins with Iron/Calcium/Folic Acid/Minerals Tab PO SCH (09:05)
[2022-02-21] MEDS: Phenazopyridine 95 MG Tab PO SCH ×3 (09:06→21:05)
[2022-02-21] MEDS: MOMETASONE FUROATE INH SCH ×2 (09:07→21:08)
[2022-02-21] MEDS: Sodium Chloride 0.9% 10 ML Syringe FLUSH SCH ×2 (09:11→21:13)
[2022-02-21] MEDS: Tiotropium Inhaler 18 MCG Inhalation Powder Cap Kit of 5 INH SCH (12:12)
[2022-02-21] MEDS: Insulin Glarg,Human.Rec.Analog 100 Unit/ML SUBCUT SCH (21:02)
[2022-02-21] MEDS: Rosuvastatin 10 MG Tab PO SCH (21:06)
[2022-02-21] MEDS: amLODIPine 5 MG Tab PO SCH (21:07)
[2022-02-21] MEDS: BICALUTAMIDE 50 MG PO SCH (21:08)
[2022-02-22] MEDS: Pantoprazole 40 MG Tab.CR PO SCH (05:47)
[2022-02-22] MEDS: Finasteride 5 MG Tab PO SCH (09:58)
[2022-02-22] MEDS: Apixaban 5 MG Tab PO SCH ×2 (09:58→20:23)
[2022-02-22] MEDS: Dexamethasone 6 MG TABLET PO SCH (09:58)
[2022-02-22] MEDS: Saccharomyces Boulardii (Probiotic) 250 MG Cap PO SCH ×2 (09:58→20:23)
[2022-02-22] MEDS: Phenazopyridine 95 MG Tab PO SCH ×3 (09:59→20:23)
[2022-02-22] MEDS: Multivitamins with Iron/Calcium/Folic Acid/Minerals Tab PO SCH (09:59)
[2022-02-22] MEDS: buPROPion 150 MG Tab.ER PO SCH (10:00)
[2022-02-22] MEDS: busPIRone 15 MG Tab PO SCH ×2 (10:01→20:22)
[2022-02-22] MEDS: Insulin Lispro 100 Units/ML 3 ML Vial SUBCUT SCH ×3 (10:06→17:31)
[2022-02-22] MEDS: Insulin Glarg,Human.Rec.Analog 100 Unit/ML SUBCUT SCH ×2 (10:08→20:24)
[2022-02-22] MEDS: MOMETASONE FUROATE INH SCH ×2 (10:08→20:25)
[2022-02-22] MEDS: Tiotropium Inhaler 18 MCG Inhalation Powder Cap Kit of 5 INH SCH (12:17)
[2022-02-22] MEDS: Sodium Chloride 0.9% 10 ML Syringe FLUSH SCH (12:18)
[2022-02-22] MEDS: glipiZIDE 5 MG Tab PO SCH ×2 (13:12→17:33)
[2022-02-22] MEDS: amLODIPine 5 MG Tab PO SCH (20:22)
[2022-02-22] MEDS: Rosuvastatin 10 MG Tab PO SCH (20:23)
[2022-02-22] MEDS: BICALUTAMIDE 50 MG PO SCH (20:24)
[2022-02-23] MEDS: Pantoprazole 40 MG Tab.CR PO SCH (06:15)
[2022-02-23] MEDS: glipiZIDE 5 MG Tab PO SCH ×2 (08:20→17:35)
[2022-02-23] MEDS: Insulin Glarg,Human.Rec.Analog 100 Unit/ML SUBCUT SCH ×2 (08:21→21:11)
[2022-02-23] MEDS: Insulin Lispro 100 Units/ML 3 ML Vial SUBCUT SCH ×3 (08:59→17:35)
[2022-02-23] MEDS: Apixaban 5 MG Tab PO SCH ×2 (09:12→21:08)
[2022-02-23] MEDS: busPIRone 15 MG Tab PO SCH ×2 (09:12→21:08)
[2022-02-23] MEDS: Phenazopyridine 95 MG Tab PO SCH ×3 (09:12→21:07)
[2022-02-23] MEDS: Saccharomyces Boulardii (Probiotic) 250 MG Cap PO SCH ×2 (09:13→21:08)
[2022-02-23] MEDS: Finasteride 5 MG Tab PO SCH (09:14)
[2022-02-23] MEDS: buPROPion 150 MG Tab.ER PO SCH (09:14)
[2022-02-23] MEDS: Dexamethasone 6 MG TABLET PO SCH (09:14)
[2022-02-23] MEDS: Multivitamins with Iron/Calcium/Folic Acid/Minerals Tab PO SCH (09:14)
[2022-02-23] MEDS: MOMETASONE FUROATE INH SCH ×2 (12:26→21:15)
[2022-02-23] MEDS: Tiotropium Inhaler 18 MCG Inhalation Powder Cap Kit of 5 INH SCH (15:02)
[2022-02-23] MEDS: amLODIPine 5 MG Tab PO SCH (21:09)
[2022-02-23] MEDS: Rosuvastatin 10 MG Tab PO SCH (21:09)
[2022-02-23] MEDS: BICALUTAMIDE 50 MG PO SCH (21:14)
[2022-02-24] MEDS: glipiZIDE 5 MG Tab PO SCH ×2 (08:30→17:21)
[2022-02-24] MEDS: Dexamethasone 6 MG TABLET PO SCH (08:31)
[2022-02-24] MEDS: busPIRone 15 MG Tab PO SCH ×2 (08:31→21:37)
[2022-02-24] MEDS: Saccharomyces Boulardii (Probiotic) 250 MG Cap PO SCH ×2 (08:31→21:39)
[2022-02-24] MEDS: Apixaban 5 MG Tab PO SCH ×2 (08:34→21:39)
[2022-02-24] MEDS: Finasteride 5 MG Tab PO SCH (08:34)
[2022-02-24] MEDS: Pantoprazole 40 MG Tab.CR PO SCH (08:34)
[2022-02-24] MEDS: Multivitamins with Iron/Calcium/Folic Acid/Minerals Tab PO SCH (08:34)
[2022-02-24] MEDS: Phenazopyridine 95 MG Tab PO SCH ×3 (08:34→21:41)
[2022-02-24] MEDS: buPROPion 150 MG Tab.ER PO SCH (08:34)
[2022-02-24] MEDS: Insulin Lispro 100 Units/ML 3 ML Vial SUBCUT SCH ×3 (08:36→17:21)
[2022-02-24] MEDS: Insulin Glarg,Human.Rec.Analog 100 Unit/ML SUBCUT SCH ×2 (08:38→21:39)
[2022-02-24] MEDS: MOMETASONE FUROATE INH SCH ×2 (08:39→21:42)
[2022-02-24] MEDS: Tiotropium Inhaler 18 MCG Inhalation Powder Cap Kit of 5 INH SCH (14:04)
[2022-02-24] MEDS: Rosuvastatin 10 MG Tab PO SCH (21:38)
[2022-02-24] MEDS: amLODIPine 5 MG Tab PO SCH (21:40)
[2022-02-24] MEDS: BICALUTAMIDE 50 MG PO SCH (21:41)
[2022-02-25] MEDS: Insulin Glarg,Human.Rec.Analog 100 Unit/ML SUBCUT SCH ×2 (08:32→20:53)
[2022-02-25] MEDS: MOMETASONE FUROATE INH SCH ×2 (08:32→20:59)
[2022-02-25] MEDS: Multivitamins with Iron/Calcium/Folic Acid/Minerals Tab PO SCH (08:33)
[2022-02-25] MEDS: Insulin Lispro 100 Units/ML 3 ML Vial SUBCUT SCH ×8 (08:33→20:58)
[2022-02-25] MEDS: Apixaban 5 MG Tab PO SCH ×2 (08:34→20:51)
[2022-02-25] MEDS: Phenazopyridine 95 MG Tab PO SCH ×3 (08:34→20:59)
[2022-02-25] MEDS: glipiZIDE 5 MG Tab PO SCH ×2 (08:34→17:10)
[2022-02-25] MEDS: buPROPion 150 MG Tab.ER PO SCH (08:34)
[2022-02-25] MEDS: Saccharomyces Boulardii (Probiotic) 250 MG Cap PO SCH ×2 (08:34→20:51)
[2022-02-25] MEDS: Pantoprazole 40 MG Tab.CR PO SCH (08:34)
[2022-02-25] MEDS: busPIRone 15 MG Tab PO SCH ×2 (08:34→20:50)
[2022-02-25] MEDS: Finasteride 5 MG Tab PO SCH (08:34)
[2022-02-25] MEDS: Tiotropium Inhaler 18 MCG Inhalation Powder Cap Kit of 5 INH SCH (12:05)
[2022-02-25] MEDS: Rosuvastatin 10 MG Tab PO SCH (20:51)
[2022-02-25] MEDS: amLODIPine 5 MG Tab PO SCH (20:53)
[2022-02-25] MEDS: BICALUTAMIDE 50 MG PO SCH (20:58)
[2022-02-26] MEDS: Insulin Lispro 100 Units/ML 3 ML Vial SUBCUT SCH ×7 (07:48→21:35)
[2022-02-26] MEDS: glipiZIDE 5 MG Tab PO SCH ×2 (08:35→17:04)
[2022-02-26] MEDS: Pantoprazole 40 MG Tab.CR PO SCH (08:36)
[2022-02-26] MEDS: buPROPion 150 MG Tab.ER PO SCH (08:36)
[2022-02-26] MEDS: Saccharomyces Boulardii (Probiotic) 250 MG Cap PO SCH ×2 (08:36→21:25)
[2022-02-26] MEDS: Phenazopyridine 95 MG Tab PO SCH ×3 (08:37→21:26)
[2022-02-26] MEDS: Finasteride 5 MG Tab PO SCH (08:37)
[2022-02-26] MEDS: Multivitamins with Iron/Calcium/Folic Acid/Minerals Tab PO SCH (08:37)
[2022-02-26] MEDS: busPIRone 15 MG Tab PO SCH ×2 (08:37→21:24)
[2022-02-26] MEDS: Apixaban 5 MG Tab PO SCH ×2 (08:37→21:24)
[2022-02-26] MEDS: Insulin Glarg,Human.Rec.Analog 100 Unit/ML SUBCUT SCH ×2 (08:40→21:34)
[2022-02-26] MEDS: MOMETASONE FUROATE INH SCH ×2 (08:41→21:37)
[2022-02-26] MEDS: Tiotropium Inhaler 18 MCG Inhalation Powder Cap Kit of 5 INH SCH (12:47)
[2022-02-26] MEDS: amLODIPine 5 MG Tab PO SCH (20:00)
[2022-02-26] MEDS: Rosuvastatin 10 MG Tab PO SCH (21:23)
[2022-02-26] MEDS: BICALUTAMIDE 50 MG PO SCH (21:27)
[2022-02-27] MEDS: Insulin Lispro 100 Units/ML 3 ML Vial SUBCUT SCH ×7 (08:00→20:24)
[2022-02-27] MEDS: Insulin Glarg,Human.Rec.Analog 100 Unit/ML SUBCUT SCH ×3 (08:45→20:17)
[2022-02-27] MEDS: MOMETASONE FUROATE INH SCH ×2 (09:25→20:25)
[2022-02-27] MEDS: glipiZIDE 5 MG Tab PO SCH ×2 (13:00→17:13)
[2022-02-27] MEDS: Pantoprazole 40 MG Tab.CR PO SCH (13:00)
[2022-02-27] MEDS: Phenazopyridine 95 MG Tab PO SCH ×3 (13:00→20:15)
[2022-02-27] MEDS: buPROPion 150 MG Tab.ER PO SCH (13:00)
[2022-02-27] MEDS: Saccharomyces Boulardii (Probiotic) 250 MG Cap PO SCH ×2 (13:00→20:16)
[2022-02-27] MEDS: Multivitamins with Iron/Calcium/Folic Acid/Minerals Tab PO SCH (13:00)
[2022-02-27] MEDS: Apixaban 5 MG Tab PO SCH ×2 (13:00→20:16)
[2022-02-27] MEDS: busPIRone 15 MG Tab PO SCH ×2 (13:00→20:15)
[2022-02-27] MEDS: Tiotropium Inhaler 18 MCG Inhalation Powder Cap Kit of 5 INH SCH ×2 (13:00→13:13)
[2022-02-27] MEDS: Finasteride 5 MG Tab PO SCH (13:00)
[2022-02-27] MEDS: Rosuvastatin 10 MG Tab PO SCH (20:17)
[2022-02-27] MEDS: amLODIPine 5 MG Tab PO SCH (20:22)
[2022-02-27] MEDS: BICALUTAMIDE 50 MG PO SCH (20:23)
[2022-02-28] MEDS: Insulin Lispro 100 Units/ML 3 ML Vial SUBCUT SCH ×7 (09:23→20:54)
[2022-02-28] MEDS: Insulin Glarg,Human.Rec.Analog 100 Unit/ML SUBCUT SCH ×2 (09:25→20:54)
[2022-02-28] MEDS: MOMETASONE FUROATE INH SCH ×2 (09:33→20:48)
[2022-02-28] MEDS: Saccharomyces Boulardii (Probiotic) 250 MG Cap PO SCH ×2 (10:48→20:41)
[2022-02-28] MEDS: Finasteride 5 MG Tab PO SCH (10:48)
[2022-02-28] MEDS: Multivitamins with Iron/Calcium/Folic Acid/Minerals Tab PO SCH (10:49)
[2022-02-28] MEDS: busPIRone 15 MG Tab PO SCH ×2 (10:50→20:44)
[2022-02-28] MEDS: Phenazopyridine 95 MG Tab PO SCH ×3 (10:51→20:43)
[2022-02-28] MEDS: Apixaban 5 MG Tab PO SCH ×2 (10:51→20:42)
[2022-02-28] MEDS: buPROPion 150 MG Tab.ER PO SCH (10:51)
[2022-02-28] MEDS: Pantoprazole 40 MG Tab.CR PO SCH (10:56)
[2022-02-28] MEDS: glipiZIDE 5 MG Tab PO SCH ×2 (10:56→17:49)
[2022-02-28] MEDS: Tiotropium Inhaler 18 MCG Inhalation Powder Cap Kit of 5 INH SCH (14:55)
[2022-02-28] MEDS: amLODIPine 5 MG Tab PO SCH (20:42)
[2022-02-28] MEDS: Rosuvastatin 10 MG Tab PO SCH (20:42)
[2022-02-28] MEDS: BICALUTAMIDE 50 MG PO SCH (20:47)
[2022-03-01] MEDS: glipiZIDE 5 MG Tab PO SCH ×2 (08:00→17:24)
[2022-03-01] MEDS: Pantoprazole 40 MG Tab.CR PO SCH (08:00)
[2022-03-01] MEDS: Insulin Lispro 100 Units/ML 3 ML Vial SUBCUT SCH ×6 (08:04→20:46)
[2022-03-01] MEDS: busPIRone 15 MG Tab PO SCH ×2 (10:47→20:40)
[2022-03-01] MEDS: Finasteride 5 MG Tab PO SCH (10:47)
[2022-03-01] MEDS: Saccharomyces Boulardii (Probiotic) 250 MG Cap PO SCH ×2 (10:48→20:43)
[2022-03-01] MEDS: Apixaban 5 MG Tab PO SCH ×2 (10:49→20:42)
[2022-03-01] MEDS: Multivitamins with Iron/Calcium/Folic Acid/Minerals Tab PO SCH (10:49)
[2022-03-01] MEDS: Phenazopyridine 95 MG Tab PO SCH ×3 (10:49→20:41)
[2022-03-01] MEDS: buPROPion 150 MG Tab.ER PO SCH (10:49)
[2022-03-01] MEDS: MOMETASONE FUROATE INH SCH ×2 (10:53→20:43)
[2022-03-01] MEDS: Insulin Glarg,Human.Rec.Analog 100 Unit/ML SUBCUT SCH ×2 (10:56→20:45)
[2022-03-01] MEDS: Tiotropium Inhaler 18 MCG Inhalation Powder Cap Kit of 5 INH SCH (12:52)
[2022-03-01] MEDS: amLODIPine 5 MG Tab PO SCH (20:42)
[2022-03-01] MEDS: Rosuvastatin 10 MG Tab PO SCH (20:42)
[2022-03-01] MEDS: BICALUTAMIDE 50 MG PO SCH (20:43)
[2022-03-02] MEDS: busPIRone 15 MG Tab PO SCH (08:13)
[2022-03-02] MEDS: Finasteride 5 MG Tab PO SCH (08:14)
[2022-03-02] MEDS: glipiZIDE 5 MG Tab PO SCH ×2 (08:14→17:12)
[2022-03-02] MEDS: Apixaban 5 MG Tab PO SCH (08:14)
[2022-03-02] MEDS: Saccharomyces Boulardii (Probiotic) 250 MG Cap PO SCH (08:14)
[2022-03-02] MEDS: Phenazopyridine 95 MG Tab PO SCH ×2 (08:14→13:59)
[2022-03-02] MEDS: Multivitamins with Iron/Calcium/Folic Acid/Minerals Tab PO SCH (08:14)
[2022-03-02] MEDS: Pantoprazole 40 MG Tab.CR PO SCH (08:14)
[2022-03-02] MEDS: buPROPion 150 MG Tab.ER PO SCH (08:14)
[2022-03-02] MEDS: Insulin Lispro 100 Units/ML 3 ML Vial SUBCUT SCH ×3 (08:24→17:13)
[2022-03-02] MEDS: MOMETASONE FUROATE INH SCH (08:24)
[2022-03-02] MEDS: Insulin Glarg,Human.Rec.Analog 100 Unit/ML SUBCUT SCH (08:27)
[2022-03-02] MEDS: Tiotropium Inhaler 18 MCG Inhalation Powder Cap Kit of 5 INH SCH (12:11)
== END 2022-03-02 19:00 | disposition home health service (06) | DRG 177 ==
LOC: DL.MS 16:36
PROVIDERS: ADMIT Internal Medicine; ATTEND Hospitalist
PROC: 8E0ZXY6 Isolation (ICD-10-PCS; principal; 2022-02-18)
PROC: 3E0333Z Introduction of Anti-inflammatory into Peripheral Vein, Percutaneous Approach (ICD-10-PCS; 2022-02-18)
DX: U07.1 COVID-19 (principal); J12.82 Pneumonia due to coronavirus disease 2019; J96.01 Acute respiratory failure with hypoxia; Z94.84 Stem cells transplant status; N18.4 Chronic kidney disease, stage 4 (severe); E66.9 Obesity, unspecified; Z68.32 Body mass index [BMI] 32.0-32.9, adult; F01.50 Vascular dementia, unspecified severity, without behavioral disturbance, psychotic disturbance, mood disturbance, and anxiety; E88.09 Other disorders of plasma-protein metabolism, not elsewhere classified; E11.65 Type 2 diabetes mellitus with hyperglycemia; J44.9 Chronic obstructive pulmonary disease, unspecified; G47.33 Obstructive sleep apnea (adult) (pediatric); K21.9 Gastro-esophageal reflux disease without esophagitis; D50.9 Iron deficiency anemia, unspecified; E11.22 Type 2 diabetes mellitus with diabetic chronic kidney disease; I12.9 Hypertensive chronic kidney disease with stage 1 through stage 4 chronic kidney disease, or unspecified chronic kidney disease; D69.6 Thrombocytopenia, unspecified; Z90.5 Acquired absence of kidney; Z86.718 Personal history of other venous thrombosis and embolism; Z79.01 Long term (current) use of anticoagulants; Z79.1 Long term (current) use of non-steroidal anti-inflammatories (NSAID); Z87.19 Personal history of other diseases of the digestive system; Z85.71 Personal history of Hodgkin lymphoma; Z79.4 Long term (current) use of insulin; Z87.891 Personal history of nicotine dependence; Z79.52 Long term (current) use of systemic steroids; Z79.899 Other long term (current) drug therapy; Z88.0 Allergy status to penicillin; Z88.5 Allergy status to narcotic agent; Z88.8 Allergy status to other drugs, medicaments and biological substances; Z88.2 Allergy status to sulfonamides; I25.2 Old myocardial infarction; Z87.2 Personal history of diseases of the skin and subcutaneous tissue; Z86.16 Personal history of COVID-19; Z90.89 Acquired absence of other organs; Z90.49 Acquired absence of other specified parts of digestive tract
CPT/HCPCS: 36415; 80048; 82947; 83735; 94618; 97110-GP; 97116-GP; 97161-GP; 97165-GO; 97530-GO; A9270-GY; J0456; J0696; J1815-GY; J3490; J7050; J8540

== ENCOUNTER 2022-11-18 15:14 | Emergency (ER) | payer OTHER | END 2022-11-18 16:48 | disposition home or self-care (01) | LOC: DL.ED 15:14 | DX: S42.295A Other nondisplaced fracture of upper end of left humerus, initial encounter for closed fracture (principal); E11.9 Type 2 diabetes mellitus without complications; J44.9 Chronic obstructive pulmonary disease, unspecified; I25.2 Old myocardial infarction; E66.9 Obesity, unspecified; Z86.16 Personal history of COVID-19; Z88.0 Allergy status to penicillin; Z88.2 Allergy status to sulfonamides; Z88.5 Allergy status to narcotic agent; Z88.8 Allergy status to other drugs, medicaments and biological substances; Z79.4 Long term (current) use of insulin; Z79.01 Long term (current) use of anticoagulants; Z68.37 Body mass index [BMI] 37.0-37.9, adult; Z79.899 Other long term (current) drug therapy; W01.0XXA Fall on same level from slipping, tripping and stumbling without subsequent striking against object, initial encounter | CPT/HCPCS: 73060-LT; 99283 ==

== ENCOUNTER 2023-09-21 17:21 | Emergency (ER) | payer MEDICARE, OTHER | END 2023-09-21 18:08 | disposition home or self-care (01) | LOC: DL.ED 17:21 | DX: H60.391 Other infective otitis externa, right ear (principal); I25.2 Old myocardial infarction; J44.9 Chronic obstructive pulmonary disease, unspecified; E66.9 Obesity, unspecified; E11.9 Type 2 diabetes mellitus without complications; Z88.0 Allergy status to penicillin; Z88.2 Allergy status to sulfonamides; Z88.5 Allergy status to narcotic agent; Z88.8 Allergy status to other drugs, medicaments and biological substances; Z79.4 Long term (current) use of insulin; Z79.899 Other long term (current) drug therapy; Z86.16 Personal history of COVID-19; Z90.49 Acquired absence of other specified parts of digestive tract; Z68.37 Body mass index [BMI] 37.0-37.9, adult | CPT/HCPCS: 99282; 99284 ==

== ENCOUNTER 2024-06-05 19:12 | Emergency (ER) | payer OTHER, MEDICARE ==
[2024-06-05 19:34] LABS: BASOPHILS PERCENT AUTO 0.7 % (0.0-1.0); EOSINOPHILS PERCENT AUTO 2.1 % (1.0-3.0); LYMPHOCYTES PERCENT AUTO 25.6 % (20.5-50.1); MEAN CORPUSCULAR HEMOGLOBIN 28.8 pg (27.0-34.0); MEAN CORPUSCULAR HGB CONC 31.8 g/dL (33.0-35.0); MEAN CORPUSCULAR VOLUME 90.5 fL (80-100); MONOCYTES PERCENT AUTO 10.1 % (2-8); NEUTROPHILS PERCENT AUTO 61.5 % (42.2-75.2); PLATELET COUNT,PLT 195 10^3/uL (150-450); RED BLOOD CELL COUNT 4.86 10^6/uL (4.6-6.2); WHITE BLOOD CELL COUNT,WBC 10.7 10^3/uL (5.0-10.0)
[2024-06-05] MEDS: Acetaminophen 325 MG Tab PO ONE (19:37)
[2024-06-05 19:53] LABS: ALBUMIN 3.9 g/dL (3.4-5.0); ANION GAP 15.4 mEq/L (7-13); BILIRUBIN TOTAL 0.4 mg/dL (0.2-1.0); BUN/CREATININE RATIO 21.3 (No establ ref range); CALCIUM 9.3 mg/dL (8.5-10.1); CREATININE 2.49 mg/dL (0.70-1.30); EST CRCL DRUG DOSING (CG) 23.27 mL/min; POTASSIUM,K 4.4 mmol/L (3.5-5.1); PROTEIN TOTAL,TP 7.7 g/dL (6.4-8.2)
[2024-06-05 21:19] LABS: APPEARANCE,URINE CLEAR (CLEAR); BILIRUBIN,URINE NEGATIVE (NEGATIVE); COLOR,URINE YELLOW (YELLOW); GLUCOSE,URINE 500 (NEGATIVE); KETONES,URINE NEGATIVE (NEGATIVE); LEUKOCYTE ESTERASE,URINE NEGATIVE (NEGATIVE); NITRITE,URINE NEGATIVE (NEGATIVE); OCCULT BLOOD,URINE TRACE-INTACT (NEGATIVE); PH,URINE 5.5 (5.0-9.0); PROTEIN,URINE NEGATIVE (NEGATIVE); UROBILINOGEN,URINE 0.2 mg/dL (0.2-1.0)
[2024-06-05 22:03] LABS: BACTERIA,URINE FEW /HPF (0-FEW/HPF); EPITHELIAL CELLS,URINE RARE /HPF (NOT SEEN); MUCUS,URINE FEW /LPF (NOT SEEN); WBC,URINE 0-5 /HPF (0-5/HPF)
== END 2024-06-05 22:36 | disposition home or self-care (01) ==
LOC: DL.ED 19:12
DX: S01.81XA Laceration without foreign body of other part of head, initial encounter (principal); M25.561 Pain in right knee; I12.9 Hypertensive chronic kidney disease with stage 1 through stage 4 chronic kidney disease, or unspecified chronic kidney disease; N18.9 Chronic kidney disease, unspecified; I25.2 Old myocardial infarction; J44.9 Chronic obstructive pulmonary disease, unspecified; E11.9 Type 2 diabetes mellitus without complications; E66.9 Obesity, unspecified; Z86.16 Personal history of COVID-19; Z90.49 Acquired absence of other specified parts of digestive tract; Z96.649 Presence of unspecified artificial hip joint; Z88.0 Allergy status to penicillin; Z88.2 Allergy status to sulfonamides; Z88.1 Allergy status to other antibiotic agents; Z88.8 Allergy status to other drugs, medicaments and biological substances; Z88.5 Allergy status to narcotic agent; Z79.01 Long term (current) use of anticoagulants; Z79.4 Long term (current) use of insulin; Z79.899 Other long term (current) drug therapy; Z68.34 Body mass index [BMI] 34.0-34.9, adult; W01.198A Fall on same level from slipping, tripping and stumbling with subsequent striking against other object, initial encounter
CPT/HCPCS: 12011; 36415; 70450; 71250; 72125; 73562; 74176; 80053; 81001; 82947; 85025; 93005; 99284; A9270